=== PATIENT | female | born 1945 | race Caucasian/White ===

== ENCOUNTER 2023-07-26 10:39 | Outpatient (CLI) | payer MEDICARE, OTHER | END 2023-07-26 10:40 | disposition EMS.NT | LOC: EMS 10:39 | DX: M53.3 Sacrococcygeal disorders, not elsewhere classified (principal); W01.0XXA Fall on same level from slipping, tripping and stumbling without subsequent striking against object, initial encounter; Y92.090 Kitchen in other non-institutional residence as the place of occurrence of the external cause ==